=== PATIENT | female | born 1980 | race Caucasian/White ===

== ENCOUNTER 2021-12-14 06:32 | Emergency (ER) | payer BC ==
[2021-12-14] MEDS ORDERED: ALBUTEROL 2.5 MG/3 ML NEBU IH ONE ×2 (06:35→06:56)
[2021-12-14] MEDS ORDERED: IPRATROPIUM 0.02% NEBU 2.5 ML IH ONE ×2 (06:35→06:57)
[2021-12-14] MEDS: methylPREDNISolone Sod Succinate 125 MG/2 ML INJ IV ONE ×2 (06:48→07:31)
[2021-12-14] MEDS: SODIUM CHLORIDE 0.9% 1000 ML 1,000 ML IV ONE ×2 (06:48→07:31)
[2021-12-14 07:02] LABS: Basophils # (Auto) 0.1 K/mm3 (0.0-0.1); Eosinophils # (Auto) 0.1 K/mm3 (0.0-0.4); Eosinophils % (Auto) 1.6 % (0.0-4.3); Lymphocytes # (Auto) 2.8 K/mm3 (1.2-5.4); Lymphocytes % (Auto) 36.6 % (13.4-35.0); Mean Corpuscular HGB Conc 36 % (30-34); Mean Corpuscular Volume 99 fl (79-97); Monocytes # (Auto) 0.6 K/mm3 (0.0-0.8); Monocytes % (Auto) 8.1 % (0.0-7.3); Platelet Count 241 K/mm3 (140-440); Red Blood Count 4.09 M/mm3 (3.65-5.03); Red Cell Distribution Width 14.5 % (13.2-15.2)
[2021-12-14 07:03] LABS: Hematocrit 40.5 % (30.3-42.9); Hemoglobin 14.7 gm/dl (10.1-14.3)
[2021-12-14 07:20] LABS: Alanine Aminotransferase 33 units/L (7-56); Albumin 4.1 g/dL (3.9-5); BUN/Creatinine Ratio 10; Blood Urea Nitrogen 7 mg/dL (7-17); Calcium 8.9 mg/dL (8.4-10.2); Creatine Kinase MB < 1.0 ng/mL (0.0-4.0); Hemolysis Index 7
[2021-12-14] MEDS ORDERED: ACETAMINOPHEN 500 MG TAB PO ONE (07:29)
--- NOTE | 2021-12-14 07:49 | Emergency Department Report ---
ED Shortness of Breath HPI - General Chief Complaint: Dyspnea/Respdistress Stated Complaint: ASTHMA Time Seen by Provider: 12/14/21 06:35 Source: patient Mode of arrival: Wheelchair Limitations: No Limitations - History of Present Illness Initial Comments: Pt came in difficulty breathing that started this morning. Pt reports hx of asthma and HTN. Pt stated she used her inhaler 4 times this morning. MD Complaint: shortness of breath, "asthma attack" -: Gradual, hour(s) Pain Scale: 0 Known History Of: asthma Associated Symptoms: denies other symptoms Treatments Prior to Arrival: bronchodilator - Related Data Home Oxygen Therapy: No Previous Rx's Medication Instructions Recorded Last Taken Type Acetaminophen/Codeine [Tylenol 1 tab PO Q6H PRN #10 tab 05/11/21 Unknown Rx /Codeine # 3 tab] Albuterol Sulfate [Proventil Hfa] 1 puff IH TID PRN #1 hfa.aer.ad 05/11/21 Unknown Rx Benzonatate [Tessalon Perles] 100 mg PO Q8HR PRN #12 capsule 05/11/21 Unknown Rx guaiFENesin/DEXTROMETHORPHAN 1 each PO Q6HR PRN #20 capsule 05/11/21 Unknown Rx [Coricidin Hbp Chest Calderon-Cough] Albuterol Mdi (or & Nicu Only) 2 puff IH QID PRN #8.5 gram 12/14/21 Unknown Rx [ProAir HFA Inhaler] Brompheniramine/Pseudoephed/Dm 5 ml PO Q6HR PRN #120 syrup 12/14/21 Unknown Rx [Bromfed Dm Cough Syrup] Allergies Allergy/AdvReac Type Severity Reaction Status Date / Time Sulfa (Sulfonamide AdvReac Severe CAN'T Unverified 11/28/21 01:25 Antibiotics) BREATHE,HIVES amoxicillin [Amoxicillin] AdvReac Mild Hives Unverified 11/28/21 01:25 ED Review of Systems ROS: Stated complaint: ASTHMA Other details as noted in HPI Constitutional: denies: chills, fever Eyes: denies: eye pain, eye discharge, vision change ENT: denies: ear pain, throat pain Respiratory: denies: cough, shortness of breath, wheezing Cardiovascular: denies: chest pain, palpitations Endocrine: no symptoms reported Gastrointestinal: denies: abdominal pain, nausea, diarrhea Genitourinary: denies: urgency, dysuria, discharge Musculoskeletal: denies: back pain, joint swelling, arthralgia Skin: denies: rash, lesions Neurological: denies: headache, weakness, paresthesias Psychiatric: denies: anxiety, depression Hematological/Lymphatic: denies: easy bleeding, easy bruising ED Past Medical Hx - Past Medical History Hx Hypertension: Yes Hx Asthma: Yes - Medications Home Medications: Home Medications Medication Instructions Recorded Confirmed Last Taken Type Acetaminophen/Codeine [Tylenol 1 tab PO Q6H PRN #10 tab 05/11/21 Unknown Rx /Codeine # 3 tab] Albuterol Sulfate [Proventil Hfa] 1 puff IH TID PRN #1 hfa.aer.ad 05/11/21 Unknown Rx Benzonatate [Tessalon Perles] 100 mg PO Q8HR PRN #12 capsule 05/11/21 Unknown Rx guaiFENesin/DEXTROMETHORPHAN 1 each PO Q6HR PRN #20 capsule 05/11/21 Unknown Rx [Coricidin Hbp Chest Calderon-Cough] Albuterol Mdi (or & Nicu Only) 2 puff IH QID PRN #8.5 gram 12/14/21 Unknown Rx [ProAir HFA Inhaler] Brompheniramine/Pseudoephed/Dm 5 ml PO Q6HR PRN #120 syrup 12/14/21 Unknown Rx [Bromfed Dm Cough Syrup] ED Physical Exam - General Limitations: No Limitations General appearance: alert, anxious - Head Head exam: Present: atraumatic, normocephalic - Eye Eye exam: Present: normal appearance - ENT ENT exam: Present: mucous membranes moist - Neck Neck exam: Present: normal inspection - Respiratory Respiratory exam: Present: normal lung sounds bilaterally, wheezes. Absent: respiratory distress - Cardiovascular Cardiovascular Exam: Present: normal rhythm, tachycardia. Absent: systolic murmur, diastolic murmur, rubs, gallop - GI/Abdominal GI/Abdominal exam: Present: soft, normal bowel sounds - Extremities Exam Extremities exam: Present: normal inspection - Back Exam Back exam: Present: normal inspection - Neurological Exam Neurological exam: Present: alert, oriented X3 - Psychiatric Psychiatric exam: Present: normal affect, normal mood - Skin Skin exam: Present: warm, dry, intact, normal color. Absent: rash ED Course Vital Signs 12/14/21 12/14/21 06:50 06:56 Temperature 98.9 F Pulse Rate 128 H Pulse Rate [ 93 H Anterior] Respiratory 16 Rate Respiratory 24 Rate [Anterior] Blood Pressure 177/134 [Left] O2 Sat by Pulse 99 Oximetry ED Medical Decision Making - Lab Data Result diagrams: 12/14/21 06:54 12/14/21 06:54 - Radiology Data Radiology results: image reviewed - Medical Decision Making DUO neb given steriods work up negative drastically imrpoved Critical care attestation.: If time is entered above; I have spent that time in minutes in the direct care of this critically ill patient, excluding procedure time. ED Disposition Clinical Impression: SOB (shortness of breath), Asthma exacerbation Disposition: 01 HOME / SELF CARE / HOMELESS Is pt being admited?: No Does the pt Need Aspirin: No Condition: Stable Instructions: Asthma, Adult, Asthma Attack Prevention, Adult
[2021-12-14 09:23] VITALS: BP 149/85
--- NOTE | 2021-12-14 10:59 | XRay Report ---
CHEST 1 VIEW 12/14/2021 9:46 AM INDICATION / CLINICAL INFORMATION: Dyspnea. COMPARISON: None available. FINDINGS: SUPPORT DEVICES: None. HEART / MEDIASTINUM: The heart size and pulmonary vasculature are normal. LUNGS / PLEURA: There is an extraneous device partially obscuring the right lung apex. No acute pulmo nary or pleural abnormality is seen. No pneumothorax. ADDITIONAL FINDINGS: No significant additional findings. IMPRESSION: No acute findings. Signer Name: Tho Collins MD Signed: 12/14/2021 10:55 AM Workstation Name: [id number]
== END 2021-12-14 09:30 | disposition home or self-care (01) ==
LOC: ED 06:32
DX: J45.901 Unspecified asthma with (acute) exacerbation (principal); R06.02 Shortness of breath; I10 Essential (primary) hypertension; Z88.2 Allergy status to sulfonamides; Z91.09 Other allergy status, other than to drugs and biological substances
CPT/HCPCS: 36415; 71045; 80053; 82550; 82553; 83880; 84484; 85025; 94644; 99284; J2930; J7030; Q0162

== ENCOUNTER 2021-12-17 10:20 | Emergency (ER) | payer SELFPAY ==
--- NOTE | 2021-12-17 11:28 | Emergency Department Report ---
- General Stated Complaint: SICK Time Seen by Provider: 12/17/21 11:16 - History of Present Illness Initial Comments: 41-year-old black female with a past medical history of hypertension and asthma presents to the emergency department for evaluation of several day history of worsening cough, congestion, and headache. She states that a few days ago she had an asthma exacerbation and has been using her nebulizer machine every 4 hours which has managed her wheezing and shortness of breath, but she just has had increased thick nasal congestion, rhinorrhea, and facial pain. She states that she has also had since yesterday with body aches and nausea. She denies fever but states that she is just felt hot, she denies shortness of breath and vomiting. MD Complaint: cough, rhinorrhea, nasal congestion -: Gradual, days(s) (3-4) Severity: moderate Associated Symptoms: headache, rhinorrhea, nasal congestion, cough. denies: fever, chills, myalgias, sore throat, stiff neck, chest pain, shortness of breath, nausea, vomiting, diarrhea - Related Data Previous Rx's Medication Instructions Recorded Last Taken Type Acetaminophen/Codeine [Tylenol 1 tab PO Q6H PRN #10 tab 05/11/21 Unknown Rx /Codeine # 3 tab] Albuterol Sulfate [Proventil Hfa] 1 puff IH TID PRN #1 hfa.aer.ad 05/11/21 Unknown Rx Benzonatate [Tessalon Perles] 100 mg PO Q8HR PRN #12 capsule 05/11/21 Unknown Rx guaiFENesin/DEXTROMETHORPHAN 1 each PO Q6HR PRN #20 capsule 05/11/21 Unknown Rx [Coricidin Hbp Chest Calderon-Cough] Albuterol Mdi (or & Nicu Only) 2 puff IH QID PRN #8.5 gram 12/14/21 Unknown Rx [ProAir HFA Inhaler] Brompheniramine/Pseudoephed/Dm 5 ml PO Q6HR PRN #120 syrup 12/14/21 Unknown Rx [Bromfed Dm Cough Syrup] methylPREDNISolone [Medrol 4MG 4 mg PO DAILY #1 12/14/21 Unknown Rx DOSEPAK (21 tabs)] Benzonatate [Tessalon Perles] 100 mg PO Q8HR #21 cap 12/17/21 Unknown Rx DOXYCYCLINE Hyclate [Vibramycin 100 mg PO Q12HR #14 capsule 12/17/21 Unknown Rx CAP] Promethazine/Dextromethorphan 5 ml PO Q4HR PRN #120 ml 12/17/21 Unknown Rx [Promethazine-Dm Solution] Allergies Allergy/AdvReac Type Severity Reaction Status Date / Time Sulfa (Sulfonamide AdvReac Severe CAN'T Unverified 11/28/21 01:25 Antibiotics) BREATHE,HIVES amoxicillin [Amoxicillin] AdvReac Mild Hives Unverified 11/28/21 01:25 ED Review of Systems ROS: Stated complaint: SICK Other details as noted in HPI Comment: All other systems reviewed and negative Constitutional: denies: chills, fever ENT: congestion Respiratory: cough. denies: shortness of breath Cardiovascular: denies: chest pain Gastrointestinal: denies: abdominal pain, nausea, vomiting Musculoskeletal: denies: back pain ED Past Medical Hx - Past Medical History Hx Hypertension: Yes Hx Asthma: Yes - Medications Home Medications: Home Medications Medication Instructions Recorded Confirmed Last Taken Type Acetaminophen/Codeine [Tylenol 1 tab PO Q6H PRN #10 tab 05/11/21 Unknown Rx /Codeine # 3 tab] Albuterol Sulfate [Proventil Hfa] 1 puff IH TID PRN #1 hfa.aer.ad 05/11/21 Unknown Rx Benzonatate [Tessalon Perles] 100 mg PO Q8HR PRN #12 capsule 05/11/21 Unknown Rx guaiFENesin/DEXTROMETHORPHAN 1 each PO Q6HR PRN #20 capsule 05/11/21 Unknown Rx [Coricidin Hbp Chest Calderon-Cough] Albuterol Mdi (or & Nicu Only) 2 puff IH QID PRN #8.5 gram 12/14/21 Unknown Rx [ProAir HFA Inhaler] Brompheniramine/Pseudoephed/Dm 5 ml PO Q6HR PRN #120 syrup 12/14/21 Unknown Rx [Bromfed Dm Cough Syrup] methylPREDNISolone [Medrol 4MG 4 mg PO DAILY #1 12/14/21 Unknown Rx DOSEPAK (21 tabs)] Benzonatate [Tessalon Perles] 100 mg PO Q8HR #21 cap 12/17/21 Unknown Rx DOXYCYCLINE Hyclate [Vibramycin 100 mg PO Q12HR #14 capsule 12/17/21 Unknown Rx CAP] Promethazine/Dextromethorphan 5 ml PO Q4HR PRN #120 ml 12/17/21 Unknown Rx [Promethazine-Dm Solution] ED Physical Exam - General General appearance: alert, in no apparent distress - Head Head exam: Present: atraumatic, normocephalic - Eye Eye exam: Present: normal appearance. Absent: conjunctival injection - ENT ENT exam: Absent: normal exam (bilateral nasal mucosal edema and turbinate swelling with clear rhinorrhea noted. ), normal orophraynx (posterior erythema noted) - Neck Neck exam: Present: normal inspection. Absent: tenderness, lymphadenopathy - Respiratory Respiratory exam: Present: normal lung sounds bilaterally. Absent: respiratory distress, wheezes, rales, rhonchi, stridor, chest wall tenderness, accessory muscle use - Cardiovascular Cardiovascular Exam: Present: normal heart sounds - GI/Abdominal GI/Abdominal exam: Present: soft, normal bowel sounds. Absent: distended, tenderness, guarding, rebound - Extremities Exam Extremities exam: Present: normal inspection - Back Exam Back exam: Present: normal inspection. Absent: CVA tenderness (R), CVA tenderness (L) - Neurological Exam Neurological exam: Present: alert, oriented X3 - Psychiatric Psychiatric exam: Present: normal affect, normal mood - Skin Skin exam: Present: warm, dry, intact, normal color ED Medical Decision Making - Medical Decision Making 41-year-old black female with a past medical history of hypertension and asthma presents to the emergency department for evaluation of several day history of worsening cough, congestion, and headache. She states that a few days ago she had an asthma exacerbation and has been using her nebulizer machine every 4 hours which has managed her wheezing and shortness of breath, but she just has had increased thick nasal congestion, rhinorrhea, and facial pain. She states that she has also had since yesterday with body aches and nausea. She denies fever but states that she is just felt hot, she denies shortness of breath and vomiting. Exam and complaint consistent with acute bacterial sinusitis despite use of otc sinus medications along with steroids. She will be treated with one week coarse of doxycycline. She was advised to take medications as prescribed and follow up with pcp if no improvement or worsening symptoms. She verbalized understanding of and agreement with plan of care. Critical care attestation.: If time is entered above; I have spent that time in minutes in the direct care of this critically ill patient, excluding procedure time. ED Disposition Clinical Impression: Acute bacterial rhinosinusitis Disposition: HOME / SELF CARE / HOMELESS Is pt being admited?: No Does the pt Need Aspirin: No Condition: Stable Instructions: Antibiotic Medicine, Adult, Hpao-of-Huor, Sinusitis, Adult, [id number] Additional Instructions: Take medications as prescribed. Drink plenty of noncaffeinated fluids. Continue using nebulizer machine as needed for shortness of breath and wheezing. Follow-up with your primary care provider for further evaluation and management. Return to the emergency department for any concerning symptoms. Prescriptions: Promethazine/Dextromethorphan [Promethazine-Dm Solution] 5 ml PO Q4HR PRN #120 ml PRN Reason: Cough Benzonatate [Tessalon Perles] 100 mg PO Q8HR #21 cap DOXYCYCLINE Hyclate [Vibramycin CAP] 100 mg PO Q12HR #14 capsule Referrals: TREASURE GRAVES MD [Primary Care Provider] - 3-5 Days Time of Disposition: 11:28
== END 2021-12-17 11:48 | disposition home or self-care (01) ==
LOC: ED 10:20
DX: J01.90 Acute sinusitis, unspecified (principal); B96.89 Other specified bacterial agents as the cause of diseases classified elsewhere; I10 Essential (primary) hypertension; J45.909 Unspecified asthma, uncomplicated; Z79.899 Other long term (current) drug therapy
CPT/HCPCS: 99282

== ENCOUNTER 2022-01-18 13:31 | Outpatient (CLI) | payer BC ==
--- NOTE | 2022-01-18 14:17 | XRay Report ---
CHEST 2 VIEWS INDICATION / CLINICAL INFORMATION: PAIN IN CHEST. COMPARISON: 12/14/2021 FINDINGS: SUPPORT DEVICES: None. HEART / MEDIASTINUM: No significant abnormality. LUNGS / PLEURA: No significant pulmonary or pleural abnormality. No pneumothorax. ADDITIONAL FINDINGS: No significant additional findings. IMPRESSION: 1. No acute findings. Signer Name: Jax Pickard MD Signed: 01/18/2022 2:12 PM Workstation Name: [email or web address]
== END 2022-01-18 13:32 | disposition home or self-care (01) ==
LOC: XRAY 13:31
PROVIDERS: ATTEND Internal Medicine
DX: J20.9 Acute bronchitis, unspecified (principal)
CPT/HCPCS: 71046

== ENCOUNTER 2022-02-23 16:14 | Emergency (ER) | payer BC ==
[2022-02-23 16:19] VITALS: BP 153/86
--- NOTE | 2022-02-23 16:43 | XRay Report ---
XR wrist 3+V LT INDICATION / CLINICAL INFORMATION: medial pain after injury. COMPARISON: None available. FINDINGS: BONES/JOINT(S): No acute fracture or subluxation. Remote healed ulnar styloid fracture noted. No sign ificant degenerative change. SOFT TISSUES: No significant abnormality. ADDITIONAL FINDINGS: None. IMPRESSION: 1. No acute findings. Signer Name: Jax Pickard MD Signed: 02/23/2022 4:39 PM Workstation Name: [email or web address]
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
== END 2022-02-23 18:00 | disposition home or self-care (01) ==
LOC: ED 16:14
DX: S69.92XA Unspecified injury of left wrist, hand and finger(s), initial encounter (principal); I10 Essential (primary) hypertension; J45.909 Unspecified asthma, uncomplicated; Z88.2 Allergy status to sulfonamides; Z91.09 Other allergy status, other than to drugs and biological substances; Z79.899 Other long term (current) drug therapy; X58.XXXA Exposure to other specified factors, initial encounter; Y93.89 Activity, other specified; Y92.89 Other specified places as the place of occurrence of the external cause; Y99.8 Other external cause status
CPT/HCPCS: 99282; 99283

== ENCOUNTER 2022-06-15 12:06 | Outpatient (CLI) | payer BC ==
--- NOTE | 2022-06-15 18:32 | Mammography Report ---
DIGITAL SCREENING MAMMOGRAM WITH TOMOSYNTHESIS WITH CAD, 06/15/2022 CLINICAL INFORMATION / INDICATION: Routine Screening Mammography. TECHNIQUE: Digital bilateral 2D and 3D mammography with tomosynthesis was obtained in the craniocauda l and mediolateral oblique projections. Computer-Aided Detection (CAD) analysis was used for interpre tation of this study. COMPARISON: 08/18/2020 FINDINGS: Breast Density: The breasts are heterogeneously dense, which may obscure small masses. No dominant mass, suspicious calcifications, or architectural distortion in the left breast. There is a 1.5 cm oval mass in the right subareolar breast. This will need further evaluation with ultrasound . Bilateral saline retropectoral breast implants. Multiple biopsy clips are present bilaterally. Stable nodule medial left breast. IMPRESSION: Right subareolar 1.5 cm oval mass. Recommend right breast ultrasound followed by possible spot compression imaging. Follow up recommendation: Ultrasound BI-RADS Category 0: INCOMPLETE. Needs additional imaging evaluation and/or prior mammograms for lucia marquez. A "normal" or negative report should not discourage follow up or biopsy of a clinically significant f inding. A written summary of these findings will be mailed to the patient. The patient will be entered into a mammography reporting system which will generate a reminder letter for the patient's next appointmen t at the appropriate interval. The [employer] recommends yearly mammograms starting at age 40 and continuing as l lizette as a woman is in good health. Breast MRI is recommended for women with an approximate 20-25% or greater lifetime risk of breast cancer, including women with a strong family history of breast or ova jason cancer or who have been treated for Hodgkin's disease. Signer Name: Ariella Davidson MD Signed: 06/15/2022 6:28 PM Workstation Name: [email or web address]
== END 2022-06-15 12:07 | disposition home or self-care (01) ==
LOC: SPVWC 12:06
PROVIDERS: ATTEND Obstetrics & Gynecology
DX: Z12.31 Encounter for screening mammogram for malignant neoplasm of breast (principal); N63.10 Unspecified lump in the right breast, unspecified quadrant
CPT/HCPCS: 77063; 77067